=== PATIENT | female | born 1945 | race Caucasian/White ===

== ENCOUNTER 2018-01-19 12:56 | Day surgery (SDC) | payer MEDICARE, OTHER ==
[2018-01-19] MEDS ORDERED: PROPOFOL 40 ML (13:56)
[2018-01-19] MEDS ORDERED: LIDOCAINE 2% (SDV) 5 ML INJ (13:56)
[2018-01-19] MEDS ORDERED: CEFAZOLIN 1 GM/50 ML (PMX) 50 ML IVPB (14:30)
== END 2018-01-19 15:19 | disposition home or self-care (01) ==
LOC: GIL 12:56
DX: Z46.59 Encounter for fitting and adjustment of other gastrointestinal appliance and device (principal); K29.70 Gastritis, unspecified, without bleeding; E11.9 Type 2 diabetes mellitus without complications; I10 Essential (primary) hypertension
CPT/HCPCS: 43247; 82962